=== PATIENT | female | born 1970 | race Caucasian/White ===

== ENCOUNTER 2022-01-15 08:14 | Emergency (ER) | payer OTHER, SELFPAY ==
[2022-01-15 08:24] VITALS: BP 110/76; PULSE 67; RESP 16; TEMP 36.9; O2SAT 98
--- NOTE | 2022-01-15 08:32 | ED.URI ---
HPI - URI/Sore Throat General Chief Complaint: Dental/Oral Stated Complaint: swollen lymph nodes, tongue blisters Time Seen by Provider: 01/15/22 08:30 Source: patient Mode of arrival: ambulatory Limitations: no limitations History of Present Illness HPI Narrative: Gisela is a 51-year-old female patient presenting to the clinic today with complaints of sore throat, swollen lymph nodes, blisters on the tongue, body aches , and chills. States that her symptoms began on Monday. MD elicited complaint: sore throat and nasal congestion Related Data Allergies Allergy/AdvReac Type Severity Reaction Status Date / Time No Known Allergies Allergy Unknown Unverified 01/15/22 08:26 Review of Systems Review of Systems: Pertinent positives per HPI. Patient denies any fever, rash, headache, visual changes, dizziness, cough, shortness of breath, chest pain, palpitations, nausea, vomiting, diarrhea, constipation, abdominal pain, or any urinary issues. PMFSH Comments At the time of my signature, I reviewed and agree with the nursing past medical, surgical, social, and family history. There is no relevant family history pertinent to the patient complaint. Exam Narrative: General: Well-developed, well nourished, in no apparent distress Head: Normocephalic, atraumatic Eyes: Pupils equally round and reactive to light bilaterally, EOM intact, sclera and conjunctive clear, no discharge, lids normal Ears: TMs intact and clear, ear canals clear, no drainage, grossly hearing normal. Nose: Nares patent, no discharge, no inflammation, no sinus tenderness. Mouth: Oral pharynx without lesions or masses, good dentition, MMM. Oropharynx red, tonsillar enlargement with white exudate bilaterally Neck: Supple, trachea midline, enlargement of anterior cervical nodes, no thyroid masses or goiter palpable. Cardio: Regular rate and rhythm, s1 and s2 normal, no murmur appreciated. Resp: Clear to auscultation bilaterally, no rhonchi, rales, wheezing or rubs Course Course Emergency Course: Portions of this record may have been created with voice recognition software. Level of Care: Express Care Visit Vital Signs Vital signs: Vital Signs Temperature 36.9 C 01/15/22 08:24 Pulse Rate 67 01/15/22 08:24 Respiratory Rate 16 01/15/22 08:24 Blood Pressure 110/76 01/15/22 08:24 Pulse Oximetry 98 01/15/22 08:24 Oxygen Delivery Room Air 01/15/22 08:24 Temperature 36.9 C 01/15/22 08:24 Pulse Rate 67 01/15/22 08:24 Respiratory Rate 16 01/15/22 08:24 Blood Pressure 110/76 01/15/22 08:24 Pulse Oximetry 98 01/15/22 08:24 Oxygen Delivery Room Air 01/15/22 08:24 Vital signs reviewed MDM - URI/Sore Throat MDM Narrative Medical decision making narrative: At the time of visit patient is resting comfortably on the exam table. Influenza and strep testing was obtained in the clinic Differential Diagnosis Differential diagnosis: Likely sinusitis, viral infection, influenza and pharyngitis Lab Data Labs: Influenza A Screen Negative Reference Range: Negative Influenza B Screen Negative Reference Range: Negative Strep Screen Presumptive Negative *(Reference Range: Negative)* Discharge Plan Discharge Clinical Impression: Exudative pharyngitis Patient Disposition: Home, Self-Care Condition: Stable Instructions: Antibiotic Form, Pharyngitis (ED) Additional Instructions: Influenza, strep, and mono testing is negative in the clinic today. Centor criteria 4/4 so we will empirically treat for strep Take prescription medications only as prescribed- amoxicillian Change toothbrush in 24 hours after initiation of antibiotics. Increase fluids and stay well hydrated Tylenol/motrin for pain/fever Flonase and OTC antihistamines as d
== END 2022-01-15 09:07 | disposition home or self-care (01) ==
PROVIDERS: Emergency Provider Nurse Practitioner Family; PCP Internal Medicine
DX: J02.9 Acute pharyngitis, unspecified (principal)
CPT/HCPCS: 36416; 86308; 87081; 87804; 87880; 99213; G0463

== ENCOUNTER 2022-04-07 11:09 | Emergency (ER) | payer OTHER, SELFPAY ==
--- NOTE | 2022-04-07 11:12 | ED.URI ---
HPI - URI/Sore Throat General Chief Complaint: Upper Respiratory Infection Stated Complaint: uri Time Seen by Provider: 04/07/22 11:12 Source: patient and RN notes reviewed Mode of arrival: ambulatory Limitations: no limitations History of Present Illness HPI Narrative: 51-year-old female presents with concern for fever, aches, chills, cough, nasal congestion and runny nose that started yesterday. She denies sick contacts. Reports she has been taking Tylenol with little relief. MD elicited complaint: cough and nasal congestion Related Data Allergies Allergy/AdvReac Type Severity Reaction Status Date / Time No Known Allergies Allergy Unknown Unverified 04/07/22 11:16 Review of Systems Review of Systems: CONSTITUTIONAL: Reports malaise, chills, fever. EYES: Denies visual changes, redness, or discharge. ENT: Reports rhinorrhea, congestion, sore throat. Denies sinus pain, otalgia CARDIOVASCULAR: Denies chest pain, palpitations, or edema. RESPIRATORY: Reports cough. Denies dyspnea. GASTROINTESTINAL: Denies abdominal pain, nausea, vomiting, diarrhea SKIN: Denies rash or itching. MUSCULOSKELETAL: Reports myalgia. NEUROLOGIC: Denies headache. All systems reviewed & are unremarkable except as noted in HPI and below PMFSH Comments At time of signature, agree with nursing past medical, surgical, social and family history. There is no relevant family history pertinent to the presenting complaint Exam Narrative: GENERAL: Well-appearing, well-nourished, and in no acute distress. HEAD: Normocephalic EYES: PERRLA, conjunctivae clear ENT: Nares clear, turbinates edematous and erythematous, clear discharge. Mucous membranes moist. TM pearly funes with dull light reflex bilaterally; no tragal tenderness. Oropharynx not erythematous without lesions. Tonsils not enlarged and without exudate, no drooling, no hoarseness, no trismus, uvula midline. NECK: Supple. No lymphadenopathy CHEST: Clear to auscultation, breath sounds equal. No wheezing, rhonchi, rales, or stridor. No respiratory distress, speaks in full sentences. HEART: Regular rate and rhythm. No murmur heard. SKIN: Warm, dry, no rash. NEURO: Alert and oriented x3. PSYCH: Normal mood and affect Course Course Emergency Course: Patient is aware of diagnosis, understands and agrees to treatment plan. Anticipatory guidance given. Patient agrees to follow-up as directed and is aware of reasons to seek care at the emergency department. Portions of this record may have been created with voice recognition software Level of Care: Express Care Visit Vital Signs Vital signs: Reviewed. MDM - URI/Sore Throat MDM Narrative Medical decision making narrative: Differential diagnosis considered: Holman virus, strep pharyngitis, allergic rhinitis, upper respiratory tract infection, sinusitis, rhinosinusitis, nasopharyngitis. viral pharyngitis, otitis media, otitis externa, pneumonia, bronchitis, viral cough syndrome, viral syndrome, and influenza. Exam findings show no acute concerns or changes; patient is non-toxic appearing and is in no distress. Patient is appropriate for outpatient treatment and follow-up. Lab Data Attestation: I reviewed the patient's lab results. Critical Care Time Critical Care Time Critical Care Time: No Discharge Plan Discharge Clinical Impression: COVID Patient Disposition: Home, Self-Care Condition: Stable Instructions: How to Recover from COVID-19 at Home (ED) Additional Instructions: Your rapid COVID test is positive. ? Stay home when you are sick, except to get medical care. ? Stay home for 5 days. If you have no symptoms or your symptoms are resolving after 5 days, you can leave your house. Continue to wear a mask around others for 5 additional days. ? If you are self isolating at home where others live, use a separate room and bathroom for sick household members (if possible). Clean any shared rooms as needed, to avoid transmitting the virus.
[2022-04-07 11:19] VITALS: BP 118/65; PULSE 80; RESP 16; TEMP 37.3; O2SAT 96
== END 2022-04-07 11:45 | disposition home or self-care (01) ==
PROVIDERS: Emergency Provider Nurse Practitioner; PCP Internal Medicine
DX: U07.1 COVID-19 (principal)
CPT/HCPCS: 87081; 87426; 87804; 87880; 99213; C9803; G0463

== ENCOUNTER 2024-09-26 11:54 | Emergency (ER) | payer OTHER, SELFPAY ==
[2024-09-26 12:02] VITALS: BP 138/96; PULSE 60; RESP 20; TEMP 37; O2SAT 100
--- NOTE | 2024-09-26 12:18 | ED_ITS ---
HPI - Skin/Abscess/Foreign Bdy General Chief complaint: Skin/Abscess/Foreign Body Stated complaint: Rash Time Seen by Provider: 09/26/24 12:10 Source: patient and RN notes reviewed Mode of arrival: ambulatory Limitations: no limitations History of Present Illness HPI narrative: Patient presents today complaining of a painful rash under the right breast. She had pain to the right lateral chest area 4 days ago, and painful rash appeared 3 days ago. She describes the pain as sharp and currently rates it 6/10. She has tried no [id number] interventions prior to arrival. No history of shingles. She has not received a shingles vaccine. Related Data Allergies Allergy/AdvReac Type Severity Reaction Status Date / Time No Known Allergies Allergy Unknown Verified 09/26/24 11:56 [facility] Comments At time of signature, I have reviewed and agree with nursing past medical, sang gical, social and family history unless otherwise noted. Please see nursing chart for further information. There is no relevant family history pertinent to the presenting complaint Exam Narrative: GENERAL: Well-appearing, well-nourished, and in no acute distress. HEAD: Normocephalic, atraumatic. EYES: EOMI. No redness or drainage. Conjunctivae normal. ENT: Mucous membranes pink and moist. NECK: Normal AROM. CHEST: No respiratory distress. EXTREMITIES: Normal range of motion. No edema. SKIN: Warm, dry. Capillary refill normal. Normal skin turgor. Few scattered vesicles on an erythematous base to the right anterior chest under the left breast. Localizes pain more laterally. Tender to palpation. No induration, fluctuance, or other signs of bacterial infection. NEURO: No focal deficits. Alert and oriented x3. Gait steady. PSYCH: Normal affect. No signs of depression or anxiety. Course Course Level of Care: Express Care Visit Vital Signs Vital signs: Vital Signs Temperature 98.6 F 09/26/24 12:02 Pulse Rate 60 09/26/24 12:02 Respiratory Rate 20 09/26/24 12:02 Blood Pressure 138/96 H 09/26/24 12:02 Pulse Oximetry 100 09/26/24 12:02 Oxygen Delivery Room Air 09/26/24 12:02 Temperature 98.6 F 09/26/24 12:02 Pulse Rate 60 09/26/24 12:02 Respiratory Rate 20 09/26/24 12:02 Blood Pressure 138/96 H 09/26/24 12:02 Pulse Oximetry 100 09/26/24 12:02 Oxygen Delivery Room Air 09/26/24 12:02 Reviewed MDM - Skin/Abscess/Foreign Bdy MDM Narrative Medical decision making narrative: Pleasant 54-year-old female patient presents with painful rash under the right breast with prodrome pain to the right lateral chest. Exam findings consistent with herpes zoster. She will be started on a prescription for acyclovir. Imtiaz mmend NSAIDs as well for pain. She declines prescription for opioid for severe breakthrough pain. Discussed that acyclovir may or may not be helpful for her symptoms since it is longer than 72 hours from onset of symptoms to starting medication. Vital signs stable. Recommend PCP follow-up next week if symptoms are not improving or if rash resolves but pain persists. Anticipatory guidance given. Differential Diagnosis Differential diagnosis: Likely abscess of skin or subcutaneous tissue, herpes zoster, cellulitis, insect bites, impetigo and contact dermatitis Critical Care Time Critical Care Time Critical Care Time: No Discharge Plan Discharge Clinical Impression: Shingles Qualifiers: Herpes zoster complications: without complications Qualified Code(s): B02.9 - Zoster without complications Patient Disposition: Home Condition: Stable Instructions: Shingles (ED) Additional Instructions: Your symptoms are consistent with shingles. Please take the valacyclovir as prescribed. Start an anti-inflammatory such as Aleve or ibuprofen to help with your discomfort. Follow-up with your PCP in 1 week if symptoms are not improving. Your blood pressure was elevated above 120/80 today at Urgent Care. This puts you above the threshold for follow up. Please schedule a followup visit with y our personal physician as soon as possible, for further evaluation and treatment. Even blood pressure exceeding 120/80 may indicate pre-hypertension. Patient Language: Yi Prescriptions: New valacyclovir 1 gram tablet 1,000 mg PO TID 7 Days Qty: 21 0RF Follow-up/Referrals: Yovanny,Adrianne Doran MD [Primary Care Provider] - Time of Disposition: 12:18
== END 2024-09-26 12:25 | disposition home or self-care (01) ==
PROVIDERS: Emergency Provider Nurse Practitioner; PCP Internal Medicine
DX: B02.9 Zoster without complications (principal)
CPT/HCPCS: 99213; G0463